=== PATIENT | male | born 1995 | race Caucasian/White ===

== ENCOUNTER 2020-03-20 12:19 | Emergency (ER) | payer OTHER ==
[2020-03-20] MEDS ORDERED: BUFFERED LIDOCAINE 10 ML SYRINGE SUBQ STA (14:24)
[2020-03-20] MEDS ORDERED: TETANUS/DIPHTHERIA/PERTUSSIS 0.5 ML SYRINGE IM ONE (14:25)
[2020-03-20] MEDS ORDERED: BACITRACIN ZINC OINT 1 PACKET TOP STA (14:25)
--- NOTE | 2020-03-20 14:52 | ED Physician Documentation ---
PD HPI UPPER EXT INJURY - Stated complaint Stated Complaint: L HAND LAC - Chief complaint Chief Complaint: Laceration - History obtained from History obtained from: Patient - History of Present Illness Location: Left, Hand Type of injury: Laceration Where injury occurred: Work Timing - onset: How many hours ago (2) - Additonal information Additional information: 24-year-old male presents to the emergency department for a laceration on the left hand that he sustained at work when using a box toe cementer to open a zip tie. Bleeding is controlled with pressure. Unknown last tetanus.Patient is right- hand dominant. Review of Systems Constitutional: denies: Fever, Chills Cardiac: denies: Chest pain / pressure, Palpitations Respiratory: denies: Dyspnea GI: denies: Abdominal Pain : denies: Dysuria Skin: reports: Laceration (s) (2 cm dorsum of left hand) Musculoskeletal: reports: Extremity pain (left hand at lac). denies: Neck pain, Back pain Neurologic: denies: Generalized weakness, Focal weakness, Syncope, Seizure, Headache, Head injury PD PAST MEDICAL HISTORY - Allergies Allergies/Adverse Reactions: Allergies Allergy/AdvReac Type Severity Reaction Status Date / Time No Known Drug Allergies Allergy Verified 03/20/20 12:28 PD ED PE NORMAL - General General: Alert and oriented X 3, No acute distress, Well developed/nourished - HEENT HEENT: PERRL - Neck Neck: No adenopathy - Cardiac Cardiac: RRR, No murmur - Respiratory Respiratory: No respiratory distress - Abdomen Abdomen: Normal bowel sounds, Soft, Non tender - Derm Derm: Other (2 cm laceration dorsum of left between the thumb and first digit.2+ distal radial pulse. Patient able to flex and extend at wrist against resistan ce. Patient makes a normal full strength fist.) Results - Vitals Vitals: Vital Signs - 24 hr 03/20/20 12:28 Temperature 36.5 C Heart Rate 61 Respiratory 14 Rate Blood Pressure 101/84 H O2 Saturation 98 Oxygen O2 Source Room air Procedures - Laceration (location) left hand Length in cm: 2 Wound type: Linear Neurovascular status: Sensory intact, Motor intact, Vascular intact Tendon involvement: Tendon intact Anesthesia: Lidocaine 1% Wound Preparation: Betadine, Irrigated copiously NS Skin layer closure: Nylon, Sutures - enter # (5) Other: Patient tolerated well, No complications, Neurovascular intact, Dressing applied, Tetanus booster given Complexity: Simple PD MEDICAL DECISION MAKING - ED course Complexity details: d/w family ED course: 24 male presents to the emergency department with a 2 cm laceration dorsum of left hand. Wound easily closed with 5 sutures. Tetanus was updated in the emergency department this is a work-related injury. Appropriate paperwork filled out. Patient is to have sutures removed in 7 days return precautions discussed for concerns of infection. Departure - Departure Disposition: 01 Home, Self Care Clinical Impression: Laceration Instructions: ED Laceration All Comments: The sutures in your left hand should be removed in about 7 days. Your tetanus was updated today and it is good for the next 7 to 10 years. Please return to any clinic or the emergency department if you have increased swelling redness or milky drainage or concerns of infection surrounding the laceration. In 24 hours you may gently wash the hand soap and water, apply any antibiotic ointment and then a simple bandage. It is okay to work but you do need to make sure that you keep your hand clean and dry while at work.
[2020-03-20 15:02] VITALS: BP 124/72
== END 2020-03-20 15:01 | disposition home or self-care (01) ==
LOC: ED 12:19
DX: S61.412A Laceration without foreign body of left hand, initial encounter (principal); W27.8XXA Contact with other nonpowered hand tool, initial encounter; Y93.89 Activity, other specified; Y99.0 Civilian activity done for income or pay; Z23 Encounter for immunization
CPT/HCPCS: 12001; 90471; 90715; 99282; 99283; A9270